=== PATIENT | male | born 1940 | race Caucasian/White ===

== ENCOUNTER 2016-06-08 11:25 | Emergency (ER) | payer OTHER ==
--- NOTE | 2016-06-08 12:27 | EDPHY ---
H & P Time Seen by Provider: 06/08/16 12:24 HPI/ROS: HPI: 76-year-old male presents to emergency department with chief concern fever and cough. Symptoms onset suddenly yesterday. Reports dry cough with temp 103 this morning associated with lightheadedness. Denies myalgias, rhinorrhea, sore throat, ear pain, shortness of breath, chest pain, abdominal pain, nausea, vomiting, diarrhea, rash. No recent travel. No flu shot this year. Up-to-date with Pneumovax. Daily medication includes aspirin and preservation. Past medical history includes colectomy, hernia, orthopedic surgeries. Primary care providers Dr. Abrams. ROS:10 point review of systems is negative other than as stated in HPI Social History: Smoking Status: Never smoked Physical Exam: Vital signs reviewed by me General: Awake, alert, calm, cooperative. No acute distress. Head: Normalocephalic. Atraumatic. EENT: PERRLA. EOMI. No pallor or injection. Anicteric. No nystagmus. No injection. TMs intact bilaterally with normal landmarks. No rhinnorhea, nasal passages clear. Oropharynx without redness, exudates, or lesions. Tonsils 2+ bilaterally, no exudates. Neck: Supple, nontender. No lymphadenopathy. Full range of motion. No meningismus. Respiratory: Breathing unlabored. Diminished bilateral lower lobe without rales or rhonchi. CV: Chest nontender, atraumatic. Heart rate regular. No murmur, distal pulses 2+ bilaterally. Brisk cap refill all extremities. GI: Abdomen soft, nontender. Bowel sounds normoactive and positive x4 quadrants. : No CVA or flank tenderness. Neuro: Alert. Oriented x 3. Speech clear. Nonfocal cranial nerves throughout. Sensation intact all extremities. Skin: Skin warm, dry, intact. No rashes, abrasions, or lacerations. Skin turgor normal. Extremities: Full range of motion in all 4 extremities. Strength 5+ all extremities. Constitutional: Initial Vital Signs Temperature (C) 37.2 C 06/08/16 11:27 Heart Rate 91 06/08/16 11:27 Respiratory Rate 18 06/08/16 11:27 Blood Pressure 107/68 06/08/16 11:27 O2 Sat (%) 91 L 06/08/16 11:27 O2 Delivery Mode Room Air Allergies/Adverse Reactions: No Known Allergies Allergy (Unverified 06/08/16 11:31) Home Medications: Medication Instructions Recorded Aspirin 06/08/16 Preservision Areds 2 Softgel 06/08/16 Medical Decision Making - Diagnostics Imaging: PA and Lateral Chest Indication: Cough. Fever. Comparison: Two-view chest dated January 03, 2015 Findings: No airspace consolidation, edema or effusion. The lungs are hypoventilated with subpleural reticular abnormality in the lower lung zones. Heart size normal. Mild degenerative disk disease present throughout the mid thoracic spine. Suture anchors and screws overlie bilateral shoulders. Impression: 1. No pneumonia. 2. Query underlying interstitial lung disease. Dictated By: Bret Woods MD ED Course/Re-evaluation: Nontoxic 76-year-old male presents to emergency department with fever and cough. Symptoms onset suddenly yesterday. Did not receive a flu shot this year. He has no nausea or vomiting. He is tolerating p.o.. Flu swab is negative. In the setting of this patient having no myalgias, we will not treat him with Tamiflu. X-ray negative for evidence of pneumonia. Suspect other viral upper respiratory infection and will have him follow up with primary care for recheck by tomorrow without fail. Patient and his comfortable with this plan verbalize understanding of follow-up plan. Vitals are stable upon discharge. Differential Diagnosis: Differential diagnosis includes but is not limited to influenza, pneumonia, other viral URI - Data Points Laboratory Results: 06/08/16 12:31 Influenza Typ A,B (DFA) NEGATIVE FOR FLU (NEGATIVE) Departure - Departure Disposition: Home, Routine, Self-Care Clinical Impression: Viral upper respiratory infection Condition: Good Instructions: Upper Respiratory Infection (ED) Additional Instructions: Plan: Follow up with primary care by tomorrow for recheck without fail--When you call to schedule appointment, please let the office know you are an "ER follow up" appointment" For worsening symptoms including shortness of breath or chest pain return promptly to emergency department for recheck Referrals: Manpreet Abrams MD [Primary Care Provider] - As per Instructions
[2016-06-08 13:16] VITALS: BP 128/78; PULSE 70; RESP 14; TEMP 98.1; O2SAT 92
== END 2016-06-08 13:15 | disposition home or self-care (01) ==
DX: J06.9 Acute upper respiratory infection, unspecified (principal); Z79.82 Long term (current) use of aspirin

== ENCOUNTER 2017-10-17 09:07 | Inpatient (IN) | payer OTHER ==
--- NOTE | 2017-10-17 09:29 | CPEKG ---
Heart Rate: 66 RR Interval: 909 P-R Interval: 236 QRSD Interval: 86 QT Interval: 424 QTC Interval: 445 P [place]: 24 QRS [place]: -15 T Wave [place]: 8 EKG Severity - ABNORMAL ECG - EKG Impression: SINUS RHYTHM EKG Impression: FIRST DEGREE AV BLOCK EKG Impression: BORDERLINE LEFT AXIS DEVIATION Electronically Signed By: Mary Roldan 17-Oct-2017 14:49:11
--- NOTE | 2017-10-17 09:30 | EDPHY ---
H & P Stated Complaint: c/o L lower arm numbness/pain during night - Personal History Current Tetanus Diphtheria and Acellular Pertussis (TDAP): Yes - Medical/Surgical History Hx Asthma: No Hx Chronic Respiratory Disease: No Hx Diabetes: No Hx Cardiac Disease: Yes Hx Renal Disease: No Hx Cirrhosis: No Hx Alcoholism: No Hx HIV/AIDS: No Hx Splenectomy or Spleen Trauma: No Other PMH: afib. 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 This started at 3:00 a.m. Today. He is unsure whether the pain will come upper whether he had to go to the bathroom and noticed the discomfort. He then noticed paresthesias. This has now resolved. He notes similar symptoms when he was swimming 4 days ago. Pain resolved 10 min after he stops swimming. At the time I interview and examine him he is asymptomatic. He denies: Chest pain, dyspnea, back pain, arm pain. He does state that he has had difficulty appreciating as brisk pulses usual for the past few days and feels that the hand is slightly colder. PRIMARY CARE PROVIDER: REVIEW OF SYSTEMS: A ten point review of systems was performed and is negative with the exception of the items mentioned in the HPI PAST MEDICAL & SURGICAL HISTORY: A brief run of atrial fibrillation several years ago he is undergoing medical procedure however no history of atrial fibrillation or coagulopathic disorder since SOCIAL HISTORY:Nonsmoker. No drug use. 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 Appears to be in no acute distress. Smiling, making jokes, interactive appears well. 2) HEAD: Normocephalic, atraumatic 3) HEENT: Pupils equal, round, reactive to light bilaterally. Sclera anicteric. Nasopharynx, oropharynx, clear, no lesions. 4) NECK: Full range of motion, no meningeal signs. 5) LUNGS: Clear auscultation bilaterally, no wheezes, no rhonchi, no retractions. 6) HEART: Regular rate and rhythm, no murmur, no heave, no gallop. 7) ABDOMEN: No guarding, no rebound, no focal tenderness, negative McBurney's, negative Perales's, negative Rovsing's, negative peritoneal sign, 8) MUSCULOSKELETAL: Left upper extremity: Left hand is slightly cooler than the right. Capillary refill is slightly delayed versus the right. He has no tenderness to palpation of the upper extremity. He has soft compartments. Faint Dopplerable pulses only. 9) BACK: No CVA tenderness, no midline vertebral tenderness, no fluctuance, no step-off, no obvious trauma, no visual or palpable abnormality. 10) SKIN: No rash, no petechiae. 11) Psychiatric: Patient is oriented X 3, there is no agitation. DIFFERENTIAL DIAGNOSIS: In no particular order, including but not limited to arterial occlusion, venous occlusion, myocardial ischemia, pulmonary embolus, chest wall pain, pleural inflammation and pulmonary infectious causes. (Meme Paredes) Constitutional: Initial Vital Signs Temperature (C) 36.4 C 10/17/17 09:08 Heart Rate 70 10/17/17 09:08 Respiratory Rate 16 10/17/17 09:08 Blood Pressure 165/92 H 10/17/17 09:08 O2 Sat (%) 97 10/17/17 09:08 O2 Delivery Mode Room Air Allergies/Adverse Reactions: No Known Allergies Allergy (Verified 10/17/17 09:07) Home Medications: Medication Instructions Recorded Aspirin 06/08/16 Preservision Areds 2 Softgel 06/08/16 Medical Decision Making - Diagnostics EKG Interpretation: EKG interpreted by me reveals first-degree AV block, rate 66, borderline left axis deviation, no ST or T segment changes. Interpretation: Abnormal EKG (Mary Roldan) Imaging Results: Imaging Impressions Chest X-Ray 10/17/17 09:42 Impression: No evidence of vein thrombosis in the left arm. Results called and discussed with Meme GIBSON on 10/17/2017 at 10:23. Extremity Venous Study 10/17/17 09:43 Impression: No evidence of vein thrombosis in the left arm. Results called and discussed with Meme GIBSON on 10/17/2017 at 10:23. Upper Extremity CT 10/17/17 09:48 Impression: 1. Obstruction of the distal left brachial artery presumably related to thrombus with diminished blood flow to the left forearm. 2. See above report for additional findings. Results called and discussed with Meme GIBSON on 10/17/2017 at 12:05. ED Course/Re-evaluation: 9:45 a.m.: Discussed case with secondary supervising physician Dr. Mary Roldan in the ER. Will obtain diagnostic studies including CT angiography of the upper extremity. 10:30 a.m.: Ultrasound left upper extremity negative. Awaiting results of CT angiography. Troponin is negative. I think that cardiac etiology is less than likely in this patient given his current presenting signs and symptoms. I have expressed the patient my concern over possible arterial occlusive pathology. 11:58 p.m.: Consultation with staff radiologist regarding the patient's imaging results positive for a brachial artery occlusion. 12:01 p.m.: Consultation who will evaluate patient in the ER, recommend initiating heparin therapy 1218 pm: Dr Lowry in ER to see patient Dr. Lowry will take the patient to the operating room. (Meme Paredes) 10:15 a.m.-this patient was seen and examined by me. Left upper extremity normal inspection, finger tips are slightly cooler than the right finger tips, no palpable radial pulse. Concern for arterial compromise, CTA of the left upper extremity pending. CC time 15 minutes. (Mary Roldan) - Data Points Laboratory Results: Laboratory Results 10/17/17 09:50 10/17/17 09:50 10/17/17 10/17/17 10/17/17 10:15 10:12 09:50 WBC RBC Hgb POC Hgb 14.3 gm/dL gm/dL (13.7-17.5) Hct POC Hct 42 % % (40-51) MCV MCH MCHC RDW Plt Count MPV Neut % (Auto) Lymph % (Auto) [place] % (Auto) Eos % (Auto) Baso % (Auto) Nucleat RBC Rel Count Absolute Neuts (auto) Absolute Lymphs (auto) Absolute Monos (auto) Absolute Eos (auto) Absolute Basos (auto) Absolute Nucleated RBC Immature Gran % Immature Gran # PT INR APTT POC Sodium 141 mEq/L mEq/L (135-145) Sodium 138 mEq/L mEq/L (135-145) POC Potassium 4.2 mEq/L mEq/L (3.3-5.0) Potassium 4.6 mEq/L mEq/L (3.3-5.0) POC Chloride 104 mEq/L mEq/L (97-110) Chloride 106 mEq/L mEq/L (97-110) Carbon Dioxide 24 mEq/l mEq/l (22-31) Anion Gap 8 mEq/L mEq/L (8-16) POC BUN 22 mg/dL mg/dL (7-23) BUN 23 mg/dL mg/dL (7-23) Creatinine 1.0 mg/dL mg/dL (0.7-1.3) POC Creatinine 1.1 mg/dL mg/dL (0.7-1.3) Estimated GFR > 60 Glucose 119 mg/dL H mg/dL (70-100) POC Glucose 125 mg/dL H mg/dL (70-100) Calcium 9.4 mg/dL mg/dL (8.5-10.4) POC Troponin I 0.01 ng/mL ng/mL (0.00-0.08) 10/17/17 10/17/17 09:50 09:50 WBC 8.54 10^3/uL 10^3/uL (3.80-9.50) RBC 4.42 10^6/uL 10^6/uL (4.40-6.38) Hgb 14.0 g/dL g/dL (13.7-17.5) POC Hgb Hct 41.1 % % (40.0-51.0) POC Hct MCV 93.0 fL fL (81.5-99.8) MCH 31.7 pg pg (27.9-34.1) MCHC 34.1 g/dL g/dL (32.4-36.7) RDW 12.8 % % (11.5-15.2) Plt Count 211 10^3/uL 10^3/uL (150-400) MPV 9.6 fL fL (8.7-11.7) Neut % (Auto) 72.8 % % (39.3-74.2) Lymph % (Auto) 14.9 % L % (15.0-45.0) [place] % (Auto) 9.3 % % (4.5-13.0) Eos % (Auto) 2.1 % % (0.6-7.6) Baso % (Auto) 0.5 % % (0.3-1.7) Nucleat RBC Rel Count 0.0 % % (0.0-0.2) Absolute Neuts (auto) 6.23 10^3/uL 10^3/uL (1.70-6.50) Absolute Lymphs (auto) 1.27 10^3/uL 10^3/uL (1.00-3.00) Absolute Monos (auto) 0.79 10^3/uL 10^3/uL (0.30-0.80) Absolute Eos (auto) 0.18 10^3/uL 10^3/uL (0.03-0.40) Absolute Basos (auto) 0.04 10^3/uL 10^3/uL (0.02-0.10) Absolute Nucleated RBC 0.00 10^3/uL 10^3/uL (0-0.01) Immature Gran % 0.4 % % (0.0-1.1) Immature Gran # 0.03 10^3/uL 10^3/uL (0.00-0.10) PT 13.9 SEC SEC (12.0-15.0) INR 1.05 (0.83-1.16) APTT 27.5 SEC SEC (23.0-38.0) POC Sodium Sodium POC Potassium Potassium POC Chloride Chloride Carbon Dioxide Anion Gap POC BUN BUN Creatinine POC Creatinine Estimated GFR Glucose POC Glucose Calcium POC Troponin I Medications Given: Discontinued Medications Bacitracin (Bacitracin Syringe) Confirm Administered Dose 50,000 units IRR .STK- MED ONE Stop: 10/17/17 12:55 Last Admin: 10/17/17 14:31 Dose: 50,000 units Cefazolin Sodium (Ancef) Confirm Administered Dose 1 gm .ROUTE .STK-MED ONE Stop: 10/17/17 13:40 Last Admin: 10/17/17 13:34 Dose: 1 gm Cefazolin Sodium (Ancef) Confirm Administered Dose 1 gm .ROUTE .STK-MED ONE Stop: 10/17/17 13:40 Last Admin: 10/17/17 13:34 Dose: 1 gm Heparin Sodium (Porcine) (Heparin Injection) 0 unit IVP EDNOW ONE Stop: 10/17/17 12:04 Last Admin: 10/17/17 12:18 Dose: 7,200 units Heparin Sodium (Porcine) (Heparin Flush 2,000 Unit/Ns 1,000 Ml) Confirm Administered Dose 2,000 unit .ROUTE .STK-MED ONE Stop: 10/17/17 12:54 Last Admin: 10/17/17 14:31 Dose: 2,000 unit Heparin Sodium (Porcine) (Heparin 50 Units/Ml (Premix)) 500 mls @ 0 mls/hr IV EDNOW ONE; Per Protocol PRN Reason: Protocol Stop: 10/17/17 12:04 Last Admin: 10/17/17 12:18 Dose: 500 mls Cefazolin Sodium/Dextrose (Ancef 2 Gm) 100 mls @ 200 mls/hr IV ONCALL ONE PRN Reason: Protocol Stop: 10/17/17 13:32 Last Admin: 10/17/17 14:34 Dose: Not Given Iothalamate Meglumine (Conray) Confirm Administered Dose 50 ml IV .STK-MED ONE Stop: 10/17/17 12:54 Last Admin: 10/17/17 14:29 Dose: 50 ml Polymyxin B Sulfate (Polymyxin B Syringe) Confirm Administered Dose 500,000 unit IRR .STK-MED ONE Stop: 10/17/17 12:54 Last Admin: 10/17/17 14:31 Dose: 500,000 unit Point of Care Test Results: Chemistry 10/17/17 10/17/17 10:15 10:12 POC Sodium 141 mEq/L mEq/L (135-145) POC Potassium 4.2 mEq/L mEq/L (3.3-5.0) POC Chloride 104 mEq/L mEq/L (97-110) POC BUN 22 mg/dL mg/dL (7-23) POC Creatinine 1.1 mg/dL mg/dL (0.7-1.3) POC Glucose 125 mg/dL H mg/dL (70-100) POC Troponin I 0.01 ng/mL ng/mL (0.00-0.08) ISTAT H&H 10/17/17 10:15 POC Hgb 14.3 gm/dL gm/dL (13.7-17.5) POC Hct 42 % % (40-51) Departure - Departure Disposition: [facility] Inpatient Acute 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
[2017-10-17 10:05] LABS: PLATELET COUNT 211 10^3/uL (150-400)
[2017-10-17 10:13] LABS: INR 1.05 (0.83-1.16); PROTIME(PATIENT) 13.9 SEC (12.0-15.0)
[2017-10-17] MEDS ORDERED: IOPAMIDOL (ISOVUE 370) 100 ML BTL IV ONE (10:22)
[2017-10-17] MEDS ORDERED: HEPARIN 10,000 UNIT/10 ML MDV (1,000 UNIT/ML) IVP ONE (12:03)
[2017-10-17] MEDS ORDERED: HEPARIN/DEXTROSE 500 ML IV ONE (12:03)
[2017-10-17] MEDS ORDERED: POLYMYXIN B SULFATE 500,000 UNIT/10 ML SYR IRR ONE (12:53)
[2017-10-17] MEDS ORDERED: PAPAVERINE HCL 60 MG/2 ML SDV ONE (12:53)
[2017-10-17] MEDS ORDERED: IOTHALAMATE MEG (CONRAY) 50 ML VIAL IV ONE ×2 (12:53→15:18)
[2017-10-17] MEDS ORDERED: BACITRACIN 50,000 UNITS/10 ML SYR IRR ONE (12:54)
--- NOTE | 2017-10-17 13:02 | PDGENHP ---
History and Physical - Chief Complaint L arm numbness - History of Present Illness 77yo otherwise helahty male presents with numbness and pain in the LUE. States that he initially noticed these symptoms about 3 days ago after swimming. The symptoms persisted and worsened today which prompted his presentation here. Describes a pins and needles feeling in his L hand, otherwise has full use of the extremity. Has remote hx of A-fib, notes no new trauma and otherwise feels well. 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, 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 Review of Systems Review of Systems: ROS: 10pt was reviewed & negative except for what was stated in HPI & below Physical Exam Physical Exam: Temp Pulse Resp BP Pulse Ox 36.4 C 61 18 133/82 H 96 10/17/17 09:08 10/17/17 10:36 10/17/17 10:36 10/17/17 10:36 10/17/17 10:36 Constitutional: no apparent distress, appears nourished, not in pain Eyes: PERRL, anicteric sclera, EOMI Ears, Nose, Mouth, Throat: moist mucous membranes, hearing normal, ears appear normal, no oral mucosal ulcers Cardiovascular: regular rate and rhythym, no murmur, rub, or gallop, No edema Peripheral Pulses: 2+: carotid (R), carotid (L), femoral (R), femoral (L), dorsalis-pedis (R), dorsalis-pedis (L) Respiratory: no respiratory distress, no rales or rhonchi, clear to auscultation Gastrointestinal: normoactive bowel sounds, soft, non-tender abdomen, no palpable masses Genitourinary: no bladder fullness, no bladder tenderness Skin: warm, normal color, no rashes or abrasions, no fluctuance, no induration, No mottled Musculoskeletal: full muscle strength, no muscle tenderness, normal joint ROM, no joint effusions, other (LUE: no radial or ulnar signal, hand is cool with delayed cap refill. Water-hammer pulse in L AC) Psychiatric: interacting appropriately, not anxious, not encephalopathic, thought process linear Lymph, Heme, Immunologic: no cervical LAD, no supraclavicular LAD Lab Data & Imaging Review 10/17/17 09:50 10/17/17 09:50 WBC 8.54 10^3/uL (3.80-9.50) 10/17/17 09:50 RBC 4.42 10^6/uL (4.40-6.38) 10/17/17 09:50 Hgb 14.0 g/dL (13.7-17.5) 10/17/17 09:50 POC Hgb 14.3 gm/dL (13.7-17.5) 10/17/17 10:15 Hct 41.1 % (40.0-51.0) 10/17/17 09:50 POC Hct 42 % (40-51) 10/17/17 10:15 MCV 93.0 fL (81.5-99.8) 10/17/17 09:50 MCH 31.7 pg (27.9-34.1) 10/17/17 09:50 MCHC 34.1 g/dL (32.4-36.7) 10/17/17 09:50 RDW 12.8 % (11.5-15.2) 10/17/17 09:50 Plt Count 211 10^3/uL (150-400) 10/17/17 09:50 MPV 9.6 fL (8.7-11.7) 10/17/17 09:50 Neut % (Auto) 72.8 % (39.3-74.2) 10/17/17 09:50 Lymph % (Auto) 14.9 % (15.0-45.0) L 10/17/17 09:50 [place] % (Auto) 9.3 % (4.5-13.0) 10/17/17 09:50 Eos % (Auto) 2.1 % (0.6-7.6) 10/17/17 09:50 Baso % (Auto) 0.5 % (0.3-1.7) 10/17/17 09:50 Nucleat RBC Rel Count 0.0 % (0.0-0.2) 10/17/17 09:50 Absolute Neuts (auto) 6.23 10^3/uL (1.70-6.50) 10/17/17 09:50 Absolute Lymphs (auto) 1.27 10^3/uL (1.00-3.00) 10/17/17 09:50 Absolute Monos (auto) 0.79 10^3/uL (0.30-0.80) 10/17/17 09:50 Absolute Eos (auto) 0.18 10^3/uL (0.03-0.40) 10/17/17 09:50 Absolute Basos (auto) 0.04 10^3/uL (0.02-0.10) 10/17/17 09:50 Absolute Nucleated RBC 0.00 10^3/uL (0-0.01) 10/17/17 09:50 Immature Gran % 0.4 % (0.0-1.1) 10/17/17 09:50 Immature Gran # 0.03 10^3/uL (0.00-0.10) 10/17/17 09:50 PT 13.9 SEC (12.0-15.0) 10/17/17 09:50 INR 1.05 (0.83-1.16) 10/17/17 09:50 APTT 27.5 SEC (23.0-38.0) 10/17/17 09:50 POC Sodium 141 mEq/L (135-145) 10/17/17 10:15 Sodium 138 mEq/L (135-145) 10/17/17 09:50 POC Potassium 4.2 mEq/L (3.3-5.0) 10/17/17 10:15 Potassium 4.6 mEq/L (3.3-5.0) 10/17/17 09:50 POC Chloride 104 mEq/L (97-110) 10/17/17 10:15 Chloride 106 mEq/L (97-110) 10/17/17 09:50 Carbon Dioxide 24 mEq/l (22-31) 10/17/17 09:50 Anion Gap 8 mEq/L (8-16) 10/17/17 09:50 POC BUN 22 mg/dL (7-23) 10/17/17 10:15 BUN 23 mg/dL (7-23) 10/17/17 09:50 Creatinine 1.0 mg/dL (0.7-1.3) 10/17/17 09:50 POC Creatinine 1.1 mg/dL (0.7-1.3) 10/17/17 10:15 Estimated GFR > 60 10/17/17 09:50 Glucose 119 mg/dL (70-100) H 10/17/17 09:50 POC Glucose 125 mg/dL (70-100) H 10/17/17 10:15 Calcium 9.4 mg/dL (8.5-10.4) 10/17/17 09:50 POC Troponin I 0.01 ng/mL (0.00-0.08) 10/17/17 10:12 Visualized and Interpreted imaging results: Yes Interpretation: CTA: acute occlusion of L brachial at AC. Minimal distal flow to extremity Assessment & Plan Assessment: Acute thrombus of LUE with threatened limb Plan: Hep gtt has started in ED - to OR for brachial artery exploration, thrombectomy. Discussed the risks, benefits and alternatives. He wishes to proceed.
[2017-10-17] MEDS ORDERED: ceFAZolin 2 GM/DEXTROSE 100 ML IV ONE (13:03)
[2017-10-17] MEDS ORDERED: fentaNYL 100 MCG/2 ML INJ ONE ×2 (13:32→15:07)
[2017-10-17] MEDS ORDERED: PROPOFOL 200 MG/20 ML VIAL ONE (13:32)
[2017-10-17] MEDS ORDERED: LIDOCAINE 2% JELLY 5 ML TUBE ONE ×2 (13:32)
[2017-10-17] MEDS ORDERED: LIDOCAINE 2% 5 ML SDV ONE (13:32)
[2017-10-17] MEDS ORDERED: ONDANSETRON 4 MG/2 ML VIAL ONE (13:33)
[2017-10-17] MEDS ORDERED: DEXAMETHASONE 4 MG/ML VIAL ONE ×2 (13:33)
[2017-10-17] MEDS ORDERED: ceFAZolin 1 GM VIAL ONE ×2 (13:39)
--- NOTE | 2017-10-17 13:55 | PDANEPAE ---
ANE Past Medical History - Cardiovascular History Hx Hypertension: No Hx Arrhythmias: Yes Hx Chest Pain: No Hx Coronary Artery / Peripheral Vascular Disease: No Hx CHF / Valvular Disease: No - Pulmonary History Hx COPD: No Hx Asthma/Reactive Airway Disease: No Hx Recent Upper Respiratory Infection: No Hx Oxygen in Use at Home: No Hx Sleep Apnea: No - Endocrine History Hx Diabetes: No Hyperthyroid: No Obesity: no ANE Review of Systems Review of Systems: ANE Patient History - Allergies Allergies/Adverse Reactions: No Known Allergies Allergy (Verified 10/17/17 09:07) - Home Medications Home medications: home medication list seen and reviewed Home Medications: Aspirin 06/08/16 [Last Taken Unknown] Preservision Areds 2 Softgel 06/08/16 [Last Taken Unknown] - NPO status NPO Since - Liquids (Date): 10/17/17 NPO Since - Liquids (Time): 08:00 NPO Since - Solids (Date): 10/17/17 NPO Since - Solids (Time): 08:00 - Anes Hx Anes Hx: no prior problems - Smoking Hx Smoking Status: Never smoked ANE Labs/Vital Signs - Labs Result Diagrams: 10/17/17 09:50 10/17/17 09:50 - Vital Signs Blood Pressure: 173/98 Heart Rate: 70 Respiratory Rate: 18 O2 Sat (%): 95 Height: 182.88 cm Weight: 89.811 kg ANE Physical Exam - Airway Neck exam: FROM Mallampati Score: Class 2 Mouth exam: normal dental/mouth exam - Pulmonary Pulmonary: no respiratory distress, no rales or rhonchi, clear to auscultation - Cardiovascular Cardiovascular: regular rate and rhythym, no murmur, rub, or gallop - ASA Status ASA Status: II ANE Anesthesia Plan Anesthesia Plan: GA w LMA
[2017-10-17] MEDS ORDERED: HEPARIN 10,000 UNIT/10 ML MDV (1,000 UNIT/ML) ONE (14:33)
[2017-10-17] MEDS ORDERED: fentaNYL 100 MCG/2 ML INJ IVP PRN (15:11)
[2017-10-17] MEDS ORDERED: oxyCODONE IR 5 MG TAB PO PRN (15:11)
[2017-10-17] MEDS ORDERED: ENALAPRILAT DIHYDRATE 1.25 MG/ML VIAL IVP PRN (15:11)
[2017-10-17] MEDS ORDERED: ACETAMINOPHEN 500 MG TAB PO PRN (15:11)
[2017-10-17] MEDS ORDERED: NALOXONE HCL 0.4 MG/ML INJ IVP PRN (15:11)
[2017-10-17] MEDS ORDERED: HYDROCODONE/APAP 5/325 TAB PO PRN (15:11)
[2017-10-17] MEDS ORDERED: PROMETHAZINE HCL 25 MG/ML INJ IVP PRN (15:11)
[2017-10-17] MEDS ORDERED: ONDANSETRON 4 MG/2 ML VIAL IVP PRN ×2 (15:11→16:42)
[2017-10-17] MEDS ORDERED: MEPERIDINE 25 MG/0.5 ML AMP IVP PRN (15:11)
[2017-10-17] MEDS ORDERED: LR 500 ML IV PRN (15:11)
--- NOTE | 2017-10-17 16:21 | POSTANESTH ---
Post Anesthetic Evaluation Cardiovascular Status: Similar to Pre-Op Cond Respiratory Status: Normal, Stable, Similar to Pre-op Cond. Level of Consciousness/Mental Status: Can Participate in Eval, Mildly Sleepy, Arousable Pain Control: Adequate, Prn Tx Ordered Nausea/Vomiting Control: Adequate, Prn Tx Ordered Complications Possibly Related to Anesthesia: None Noted
--- NOTE | 2017-10-17 16:49 | POSTOPPROG ---
Post Op Note Date of Operation: 10/17/17 Surgeon: Lyle Lowry Team Lead: Kirit Laurent MD Anesthesiologist: Afshan Anesthesia: GET(General Endotracheal) Pre-op Diagnosis: occluded left brachial artery Post-op Diagnosis: same Procedure: brachial artery exploration, thrombectomy with completion angio Findings: clot in distal brachial at bifurc, completion angio: good flow in radial/ul Inf/Abcess present in the surg proc area at time of surgery?: No EBL: 50-100 Specimen(s): clot
[2017-10-17] MEDS ORDERED: HEPARIN 10,000 UNIT/10 ML MDV (1,000 UNIT/ML) IVP PRN (17:01)
[2017-10-17] MEDS: D5W 1/2 NS W/ 20 KCl/L 1,000 ML IV SCH (17:41)
[2017-10-17] MEDS ORDERED: HEPARIN/DEXTROSE 500 ML IV SCH (18:00)
--- NOTE | 2017-10-17 18:05 | PDMN ---
Medical Necessity Medical necessity: Pt meets INPT criteria per MD as of 10/17/17 and MCG Cardiovascular Surgery or Procedure GRG (est. LOS >2 MN for acute occlusion of L brachial artery, s/p brachial artery exploration, thrombectomy).
[2017-10-17] MEDS: HEPARIN/DEXTROSE 500 ML IV SCH (18:32)
[2017-10-17 18:38] LABS: PLATELET COUNT 208 10^3/uL (150-400)
[2017-10-17 18:46] LABS: INR 1.16 (0.83-1.16)
[2017-10-17] MEDS: ACETAMINOPHEN 325 MG TAB PO PRN (19:45)
[2017-10-17] MEDS ORDERED: IBUPROFEN 600 MG TAB PO SCH (22:00)
--- NOTE | 2017-10-17 22:44 | GOP ---
[f rep st] OPERATIVE REPORT DATE OF OPERATION: 10/17/2017 SURGEON: Lyle Lowry MD APARTMENT HOUSE MANAGER: Jackson Laurent MD. ANESTHESIA: General endotracheal. ANESTHESIOLOGIST: Dr. Stephan Cavanaugh. PREOPERATIVE DIAGNOSIS: Threatened left upper extremity secondary to occluded left brachial artery. POSTOPERATIVE DIAGNOSIS: Threatened left upper extremity secondary to occluded left brachial artery. PROCEDURE PERFORMED: Brachial artery exploration with thrombectomy and completion angiography. FINDINGS: The patient had significant clots at the bifurcation creating what appeared to be a saddle embolus with a bifurcation of the distal brachial into the radial and ulnar requiring 2 separate thr ombectomies. Completion angiography showed brisk flow through both the radial and the ulnar branches as well as a 2+ palpable radial pulse. SPECIMENS: Clot within the artery. ESTIMATED BLOOD LOSS: 50 mL. DESCRIPTION OF PROCEDURE: The patient was greeted in the preoperative suite. Once again, risks, tabatha efits, and alternatives were discussed. Consent was signed. He was then brought back to the operati ve suite, placed on the OR table in supine position. After all anesthesia machines including SCDs we re on and functioning, World Health Organization time-out was performed. After successful induction of general anesthesia, the patient's left upper extremity to the shoulder was prepped and draped in t ypical sterile fashion. I also prepped doubt his left lower extremity in case a vein harvest was req uired. I commenced the procedure using ultrasound. Identified the brachial artery and traced its co urse over the patient's arm. I then made a lazy-S incision from the antecubital fossa all the way do wn into the forearm and carried this down to the subcutaneous tissue with electrocautery. The remain radames of the dissection was done sharply. I successfully isolated the brachial artery both proximally and distally, distally all the way down to the bifurcation into the radial and ulnar branches. It wa s encircled with vessel loops. The patient was then successfully heparinized. I first turned my att ention toward the ulnar branch which was deep. I made a transverse arteriotomy at the level of the t hrombus, the majority of which was removed at this time. I then passed a #3 Erica catheter both pr oximally and distally into the ulnar artery and had both brisk inflow and backbleeding. Completion a ngiography showed brisk flow through the ulnar branch into the palmar arch. I did not have great opa cification of the radial artery. I then did more dissection and found what appeared to be an aberran t branch of the radial artery. I dissected this out, found thrombus at this. I then performed anoth er transverse arteriotomy at this site. Again, at the level of the clot. Removed the majority of th e clot burden here. I did pass #2 and #3 Erica catheters both proximally and distally at this site and had both good inflow and back bleeding at the site. Both arteriotomies were closed interrupted with 6-0 Prolene sutures. A completion angiography was then performed proximally which showed good o pacification of both the radial and ulnar branches with a palpable radial pulse in the patient's dist al wrist. The wound was then irrigated. Hemostasis was noted to be excellent. It was closed in lay ers, first a 2-0 Vicryl to close the subcutaneous tissue, 3-0 Vicryl superficially, and the skin was then closed with nicholas. Sterile dressing was placed. At the end of the procedure, the patient's h and was warm. He had good capillary refill and a prominent 2+ radial pulse on the left side. Steril e dressings were placed. He was then extubated in the operative suite and taken to PACU in satisfact ory condition. DRAINS: None. COUNTS: All counts were reported as correct x2. /[id number]/MODL
[2017-10-18] MEDS: ACETAMINOPHEN/CODEINE 300/30MG TAB PO PRN ×3 (00:09→22:03)
[2017-10-18] MEDS: D5W 1/2 NS W/ 20 KCl/L 1,000 ML IV SCH ×2 (04:38→23:31)
[2017-10-18] MEDS: ACETAMINOPHEN 325 MG TAB PO PRN (06:23)
[2017-10-18] MEDS: HYDROmorphONE/DILAUDID 1 MG/ML INJ IVP PRN ×5 (09:22→23:27)
[2017-10-18 10:43] LABS: INR 1.2 (0.83-1.16); PROTIME(PATIENT) 15.4 SEC (12.0-15.0)
--- NOTE | 2017-10-18 11:19 | ASMTCASEMG ---
Living Arrangements What is your living Answers: With Partner arrangement? Who do you live with? Type Of Residence What kind of residence do Answers: House you live in? Discharge Plan Comments Coordination Status Comments Notes: Pt is a 77 y/o man admitted for left arm pain/numbess. Pt had surgery w/ Dr. Lowry on 10/17/17 for a clot within the artery. Pt will most likely d/c independent once medically stable. No therapies ordered at this time. CM available for changes. Plan: Independent Date Signed: 10/18/2017 11:19 AM Electronically Signed By:NELSY Mondragon
[2017-10-18] MEDS: HEPARIN/DEXTROSE 500 ML IV SCH (11:48)
--- NOTE | 2017-10-18 13:12 | GCON ---
[f rep st] CONSULTATION CARDIOLOGY CONSULTATION. DATE OF CONSULTATION: 10/18/2017 REFERRING PHYSICIAN: Lyle Lowry MD REASON FOR CONSULTATION: 1. History of paroxysmal atrial fibrillation. 2. Current admission for left upper extremity arterial thrombosis. HISTORY: The patient is a 77-year-old male with a history of paroxysmal atrial fibrillation. He was admitted to the hospital yesterday with left upper extremity pain and numbness. CT angiography demonstrated a thrombotic, near- total occlusion of the brachial artery at the level of the antecubital fossa. The patient was taken for surgical embolectomy. He is currently on intravenous heparin. He has a history of atrial fibrillation, which first presented in approximately 1999. He had intermittent episodes. However, between 2009 and 2013, he was followed by my partner, Dr. Malvin Sidhu. At that time, he appeared to be in persistent atrial fibrillation. A 24-hour Holter from December 2013 demonstrated atrial fibrillation with adequate rate control. The only other ECG in his electronic chart is from December of 2014 and also demonstrates atrial fibrillation. The patient never had an ablation procedure, cardioversion , or treatment with antiarrhythmic therapy. He was on Eliquis in the past, but opted to defer it in favor of aspirin. Interestingly, on admission yesterday, his ECG demonstrated normal sinus rhythm. PAST MEDICAL HISTORY: In addition to his atrial fibrillation, he has a history of colon cancer, pityriasis rubra pilaris, and macular degeneration. PAST SURGICAL HISTORY: Includes bicipital tendon repair, cataract surgery, partial colectomy, hernia repair, tonsillectomy, and bilateral rotator cuff repairs. FAMILY HISTORY: Noncontributory. MEDICATIONS: His only home medications are low-dose aspirin and PreserVision vitamin supplements. 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 He is . He does not smoke or consume significant amounts of alcohol. He is an avid mountaineer. REVIEW OF SYSTEMS: Apart from the arm pain that prompted this hospital encounter, a 10-point review was negative. PHYSICAL EXAMINATION: VITAL SIGNS: Heart rate in the 60s, blood pressure 125/ 73, O2 saturation 96% on room air. GENERAL: Well-developed, well-nourished male, in no acute distress. He is alert and oriented x3. HEAD AND NECK: No scleral icterus. Mucous membranes moist. Carotid pulses 2+, without bruits. CHEST: Lung cardenas clear to auscultation. CARDIAC: Normal rate and regular rhythm with normla S1 and S2. No murmurs or gallops. ABDOMEN: Soft, nontender , nondistended, with normal bowel sounds. EXTREMITIES: 2+ pulses, with no peripheral edema. LABORATORY STUDIES: CBC demonstrates a white blood cell count of 16.4. Hemoglobin and hematocrit are 12.4 and 36.3. Platelet count 206,000. Sodium 141, potassium 4.2, BUN and creatinine 23 and 1.0. His troponin was 0.01. ECG: Demonstrates normal sinus rhythm with first-degree AV block. No ischemic changes. IMPRESSION: This is a 77-year-old male with a history of atrial fibrillation. Interestingly, it appeared to be persistent as recently as December of 2014. However, he was in sinus rhythm at the time of his presentation for this hospital encounter. He was previously on systemic anticoagulation, but opted to discontinue it prior to 2013. He does not think that he has had any significant issues with atrial fibrillation for the past few years. He had significant cardiovascular training as part of his career as a division sales manager and is familiar with the concepts relating to atrial fibrillation and feels that he can easily and accurately assess his heart rhythm. He has no history of hypertension, hyperlipidemia, or documented atherosclerotic disease. He presented with a left upper extremity arterial thrombosis. I suppose it is possible that he has been having occult episodes of atrial fibrillation and could have had a cardioembolic event. However, the upper extremity would be an atypical site for a cardioembolic event. Additionally, it appeared that he had a large thrombus burden at the time of his thrombectomy. While this could potentially argue against atrial fibrillation with subsequent cardioembolism, I suppose it is possible that he had a smaller embolus typical for a-fib that lodged in the brachial artery with propagation of additional thrombus locally. He has not had any history of other thrombotic episodes. RECOMMENDATIONS: An echocardiogram will be requested. He is currently on intravenous heparin. He should be transitioned to a systemic anticoagulant once it is felt to be safe to do so from a postoperative standpoint. The patient would prefer anticoagulation to take the form of Eliquis as opposed to warfarin. I will contact the office staff at [facility] so that they can arrange for the patient to have an outpatient 30-day event monitor and a followup appointment with Dr. Malvin Sidhu. Would consider a hypercoaguable evaluation. /[id number]/MODL MTDD
--- NOTE | 2017-10-18 14:22 | ECHO ---
[email or web address] [address] [address] Main: [phone] Fax: Transthoracic Echocardiogram Name: JOCELYN LEI MR#: [id number] Study Date: 10/18/2017 Study Time: 10:58 AM Date of : 1940 Age: 77 year(s) Height: 182.9 cm (72 in.) Weight: 89.81 kg (198 lb.) BSA: 2.12 m2 Gender: Male Examination: Echo Indication: Arterial embolism Image Quality: Contrast: Requested by: Song Sanchez BP: 107 mmHg/63 mmHg Heart Rate: Rhythm: Indication: Arterial embolism Procedure Staff Rigger Helper: Mayela Washington [facility] [place] Reading Physician: Albert Sidhu MD Requesting Provider: Conclusions: Normal size left ventricle. No LV hypertrophy. Normal global systolic LV function. The ejection fraction is estimated to be 65-70 %. No regional wall motion abnormality. The mitral valve is normal in appearance and function. Mild mitral valve regurgitation is present. Minimal aortic cusp calcification is noted. Trivial aortic valve regurgitation. The tricuspid valve is normal in appearance and function. Trivial to mild tricuspid valve regurgitation. Mild pulmonic valve regurgitation is noted. Mildly dilated ascending aorta measuring 4.2 cm. No previous. Measurements: Chambers Valvular Assessment AV/MV Valvular Assessment TV/PV Normal Normal Normal Name Value Range Name Value Range Name Value Range Ao Sendy (MM): 3.6 cm (2.2 cm-3.7 AV Vmax: 1.14 m/s (1 m/s-1.7 TR Vmax: 2.69 mm/s ( - ) cm) m/s) TR PGmax: 29 mmHg ( - ) IVSd (2D): 0.8 cm (0.6 cm-1.1 AV maxP mmHg ( - ) syst. PAP: 34 mmHg ( - ) cm) AV meanP mmHg ( - ) LVDd (2D): 5.0 cm (4.2 cm-5.9 MV E Vmax: 0.72 m/s ( - ) cm) MV A Vmax: 0.31 m/s ( - ) LVDs (2D): 3.1 cm (2.1 cm-4 MV E/A: 2.32 ( - ) cm) LVPWd (2D): 1.0 cm (0.6 cm-1 cm) LVEF (MOD4): 73 % (>=55 %) Patient: JOCELYN LEI Study Date: 10/18/2017 Page 1 of 2 10:58 AM EF Range: 65-70 % Continued Measurements: Chambers Valvular Assessment AV/MV Valvular Assessment TV/PV Name Value Name Value Name Value LADs: 3.7 cm MV E/E' Septal: 12.90 CVP (est.): 5 mmHg LADs Lon.2 cm MV E/E' Lateral: 9.80 LA Area: 25.2 cm2 Additional Vessels Name Value Ao Ascendin.2 cm Findings: Left Ventricle: Normal size left ventricle. No LV hypertrophy. Normal global systolic LV function. The ejection fraction is estimated to be 65-70 %. No regional wall motion abnormality. Right Ventricle: Normal size right ventricle. Left Atrium: The left atrium is mildly dilated. Right Atrium: The right atrium is normal in size. Mitral Valve: The mitral valve is normal in appearance and function. Mild mitral valve regurgitation is present. Aortic Valve: The aortic valve is tri-leaflet. Minimal aortic cusp calcification is noted. Trivial aortic valve regurgitation. Tricuspid Valve: The tricuspid valve is normal in appearance and function. Trivial to mild tricuspid valve regurgitation. Pulmonic Valve: The pulmonic valve is normal in appearance and function. Mild pulmonic valve regurgitation is noted. Aorta: The aorta is normal. Mildly dilated ascending aorta measuring 4.2 cm. Pericardium: No pericardial effusion. (No Signature Object) Patient: JOCELYN LEI Study Date: 10/18/2017 Page 2 of 2 10:58 AM [id number]
--- NOTE | 2017-10-18 16:24 | SOAPPROG ---
[facility]ANNAH Progress Note Assessment/Plan: Assessment: 77yo M s/p LUE brachial artery thrombectomy - VSS, HDs - hep gtt, will transition to Eliquis tonight at 2100 - arm is swollen, distal sensation and motor is intact. Incision is c/d/i, has good 2+ radial pulse - watch for compartment syndrome, at this time things look ok, needs to keep the arm elevated. Plan: 10/18/17 16:23 Subjective: some LUE pain Objective: Vital Signs Temp Pulse Resp BP Pulse Ox 36.8 C 70 16 125/73 H 96 10/18/17 11:48 10/18/17 11:48 10/18/17 11:48 10/18/17 11:48 10/18/17 11:48 Laboratory Results 10/18/17 07:45 10/17/17 10/18/17 10/19/17 05:59 05:59 05:59 Intake Total 885 240 Output Total 1220 550 Balance -335 -310 PT 15.4 SEC (12.0-15.0) H 10/18/17 07:45 INR 1.20 (0.83-1.16) H 10/18/17 07:45 ICD10 Worksheet Patient Problems: Problems Problem Status Onset Occlusion of left brachial artery Acute
[2017-10-18] MEDS: APIXABAN 5 MG TAB PO SCH (21:00)
[2017-10-19] MEDS: ACETAMINOPHEN/CODEINE 300/30MG TAB PO PRN (02:12)
[2017-10-19] MEDS: HYDROmorphONE/DILAUDID 1 MG/ML INJ IVP PRN (05:01)
[2017-10-19] MEDS: APIXABAN 5 MG TAB PO SCH ×2 (09:35→20:02)
[2017-10-19] MEDS: ACETAMINOPHEN 325 MG TAB PO PRN ×2 (09:44→17:24)
--- NOTE | 2017-10-19 16:41 | PDCARPN ---
Cardiology Progress Note Assessment/Plan: Assessment: Plan: Subjective: No CV complaints. Left arm feeling better. Objective: Vital Signs (8 Hrs) Temp Pulse Resp BP Pulse Ox 10/19/17 15:49 36.5 C 91 14 126/77 H 96 10/19/17 11:53 36.7 C 86 14 127/72 H 96 Intake/Output (24 Hrs) 10/18/17 10/19/17 10/20/17 05:59 05:59 05:59 Intake Total 885 1340 Output Total 1220 2150 300 Balance -335 -810 -300 Intake: Oral (ml) 100 440 IV Intake (ml) 750 IV Infused (ml) 35 900 D5W 1/2 NS W/ 20 KCl/L 1, 600 000 ml @ 100 mls/hr IV CONT MOIRA Rx#:[id number] Heparin/Dextrose 500 ml @ 300 Per Protocol IV CONT MOIRA Rx#:[id number] Output: Urine (ml) 1200 2150 300 Toilet 250 Urinal 950 2150 300 Estimated Blood Loss (ml) 20 Emesis (ml) 0 Other: Weight 89.811 kg Number of Voids 1 Urinal 1 1 1 Result Diagrams: 10/19/17 05:17 10/17/17 09:50 - Physical Exam Constitutional: no apparent distress Eyes: anicteric sclera Ears, Nose, Mouth, Throat: moist mucous membranes Cardiovascular: regular rate and rhythm, no murmurs, no gallops Respiratory: clear to auscultate bilat Gastrointestinal: normoactive bowel sounds, no tenderness, no masses Skin: no edema Neurologic: AAOx3 Psychiatric: not anxious ICD10 Worksheet Patient Problems: Problems Problem Status Onset Occlusion of left brachial artery Acute
--- NOTE | 2017-10-19 17:53 | SOAPPROG ---
HANNAH Progress Note Assessment/Plan: Assessment: 77yo M s/p LUE brachial artery thrombectomy - VSS, HDs - Eliquis, tolerating well - LUE soft, distal radial pulse 2+ - ADAT - Ambulate - Home tomorrow, likely on Eliquis indefinitely. Plan: 10/18/17 16:23 10/19/17 17:52 Subjective: feels better, no penis blood Objective: Vital Signs Temp Pulse Resp BP Pulse Ox 36.5 C 91 14 126/77 H 96 10/19/17 15:49 10/19/17 15:49 10/19/17 15:49 10/19/17 15:49 10/19/17 15:49 Laboratory Results 10/19/17 05:17 10/18/17 10/19/17 10/20/17 05:59 05:59 05:59 Intake Total 885 1340 Output Total 1220 2150 300 Balance -335 -810 -300 PT 15.4 SEC (12.0-15.0) H 10/18/17 07:45 INR 1.20 (0.83-1.16) H 10/18/17 07:45 ICD10 Worksheet Patient Problems: Problems Problem Status Onset Occlusion of left brachial artery Acute
[2017-10-20] MEDS: ACETAMINOPHEN 325 MG TAB PO PRN (07:43)
[2017-10-20] MEDS: APIXABAN 5 MG TAB PO SCH (07:46)
[2017-10-20 07:54] VITALS: BP 125/92
--- NOTE | 2017-10-29 15:10 | GDS ---
[f rep st] DISCHARGE SUMMARY DISCHARGE DIAGNOSES: 1. Acute arterial thrombosis of the distal brachial, radial, ulnar branches of the left upper extrem ity. 2. Paroxysmal atrial fibrillation. HOSPITAL COURSE: The patient was seen in the emergency department on the , subsequently taken ur gently to the operating room where he underwent exposure of the distal brachial, as well as radial an d ulnar arteries where the acute arterial thrombus was removed. Completion angiography showed good f low through both the radial and the ulnar branches with a palpable radial pulse. Patient was subsequ ently taken back to the general medical floor where he was maintained on a heparin drip. He had cons ultation from Cardiology, whose recommendation was to restart Eliquis. It was unclear whether or not this was a spontaneous arterial thrombosis or whether it was secondary to an atrial fibrillation lui nt. At any rate, he maintained good perfusion throughout his left upper extremity. He was toleratin g regular diet, was subsequently discharged home in stable condition on the . DISCHARGE MEDICATIONS: Eliquis. He will take 10 mg twice a day for the remaining week, then back do wn to 5 mg twice a day indefinitely. He was also given oral narcotics for pain. DISPOSITION: Home. FOLLOWUP: He will follow up with me in 2 weeks for a general postop exam. He will also follow up wi th his media developer, Dr. Song Sanchez, in 2 weeks as well for a routine cardiology visit. /[id number]/MODL
== END 2017-10-20 11:33 | disposition home or self-care (01) | DRG 254 ==
LOC: OBSVTOIN 12:41 → F3E 16:56
PROVIDERS: ADMIT Surgery; ATTEND Surgery
PROC: B31J1ZZ Fluoroscopy of Left Upper Extremity Arteries using Low Osmolar Contrast (ICD-10-PCS; principal; 2017-10-17 13:15)
PROC: [UNRECOGNIZED PROCEDURE] (principal; 2017-10-17 13:15)
DX: I74.2 Embolism and thrombosis of arteries of the upper extremities (principal); I48.0 Paroxysmal atrial fibrillation; H35.30 Unspecified macular degeneration; Z85.038 Personal history of other malignant neoplasm of large intestine
CPT/HCPCS: 82435-PO; 82565-PO; 82947-PO; 84132-PO; 84295-PO; 84484-PO; 84520-PO; 85014-PO; 85520-90; 96365; 96366; C1757; J0690; J1100; J1170; J1644; J2405; J2440; J2704; J3010; Q9961; Q9967

== ENCOUNTER → 2017-11-23 | Outpatient (CLI) | payer OTHER | LOC: BHFA 14:00 | PROVIDERS: ATTEND Internal Medicine Cardiovascular Disease | DX: I48.91 Unspecified atrial fibrillation (principal); I70.208 Unspecified atherosclerosis of native arteries of extremities, other extremity; R00.0 Tachycardia, unspecified | CPT/HCPCS: 78452; 93017; A9500 ==

== ENCOUNTER 2017-12-02 07:32 | Observation (INO) | payer OTHER ==
[2017-12-02] MEDS ORDERED: ASPIRIN EC 325 MG TAB PO ONE ×2 (07:33→08:02)
[2017-12-02] MEDS ORDERED: FAMOTIDINE 20 MG TAB PO ONE (07:33)
[2017-12-02] MEDS ORDERED: diphenhydrAMINE 25 MG CAP PO ONE ×2 (07:33→08:02)
[2017-12-02] MEDS ORDERED: NS 1,000 ML IV ONE (07:33)
[2017-12-02] MEDS ORDERED: DIAZEPAM 5 MG TAB PO ONE (07:33)
[2017-12-02] MEDS ORDERED: FAMOTIDINE 20 MG TAB ONE (08:02)
[2017-12-02] MEDS ORDERED: DIAZEPAM 5 MG TAB ONE (08:03)
[2017-12-02 08:09] LABS: PLATELET COUNT 254 10^3/uL (150-400)
[2017-12-02 08:17] LABS: INR 1.4 (0.83-1.16); PROTIME(PATIENT) 17.3 SEC (12.0-15.0)
[2017-12-02] MEDS ORDERED: LIDOCAINE 1% 300 MG/30 ML SDV ONE (08:53)
[2017-12-02] MEDS ORDERED: fentaNYL 100 MCG/2 ML INJ ONE (08:53)
[2017-12-02] MEDS ORDERED: MIDAZOLAM 2 MG/2 ML VIAL ONE (08:53)
[2017-12-02] MEDS ORDERED: IOPAMIDOL (ISOVUE-370) 150 ML BTL IV ONE (08:54)
[2017-12-02] MEDS ORDERED: HEPARIN 10,000 UNIT/10 ML MDV (1,000 UNIT/ML) ONE (08:54)
[2017-12-02] MEDS ORDERED: VERAPAMIL 5 MG/2 ML VIAL ONE (08:54)
--- NOTE | 2017-12-02 09:40 | PDHPUP ---
History & Physical Update H&P update statement: This history and physical update is based on an assessment of the patient which was completed after admission or registration (within 24 hours), but prior to the surgery/procedure. H&P update: H&P reviewed & patient examined, no change in patient's condition since H&P completed
--- NOTE | 2017-12-02 09:40 | PDPROPOC ---
Sedation Plan of Care Sedation Plan of Care: vital signs stable, mental status noted, patient educated of risks, benefits, alternatives, patient can tolerate sedation ASA Classification: ASA 1 Planned drugs: fentanyl, midazolam Mallampati Score: Class 2 Mallampati Reference Image: Patient passed 3-3-2 rule?: Yes
[2017-12-02] MEDS ORDERED: ATROPINE SULFATE 1 MG/10 ML SYR IVP PRN (11:05)
[2017-12-02] MEDS ORDERED: ONDANSETRON 4 MG/2 ML VIAL IVP PRN ×2 (11:05→15:53)
[2017-12-02] MEDS ORDERED: NITROGLYCERIN 0.4 MG BTL SL PRN (11:05)
[2017-12-02] MEDS ORDERED: HYDROCODONE/APAP 5/325 TAB PO PRN (11:05)
--- NOTE | 2017-12-02 11:12 | PDDXCAT ---
Diagnostic Cath Note - . Date: 12/02/17 Hot Head Machine Operator: Daniel Indication: other (Nonsustained VT on outpatient monitoring and abnormal nuclear stress test.) - Procedure Access: right wrist Procedure: left heart catheterization, coronary angiography, left ventriculogram - Materials Left Heart Cath size: 5F Left Heart Cath materials: JL3.5, pigtail, other (Special) - Findings-Left Heart Catheterization LM: Normal. LAD: Mild irregularities up to 30%; first diagonal with focal 80-90% lesion mid- vessel. LCX: Mid-circumflex 100%; distal vessel filled by ixiqi-dt-lara collaterals. RCA: Diffuse mild to moderate irregularities up to 30-40%. EDP: 16 mmHg LVEF: 65% Wall motion: Normal. Estimated blood loss: <50ml Closure method: TR Band Assessment: 1) Normal LV systolic function. 2) Coronary artery disease as mentioned above. Plan: The chronic total the circumflex appears to be relatively short and should be approachable for PCI. The diagonal branch should be a relatively straightforward intervention. However, the patient has no cardiac symptoms. He underwent a stress test because our office was notified about an 8 beat run of wide complex tachycardia suggestive of a ventricular tachycardia seen on an [employer] 30 day monitor. Rather than proceed with an ad-hoc intervention today , I would like to present his case at our weekly conference to get additional input. I will see you in would also like to discuss the situation with him given that his arrhythmia would be a somewhat nonstandard indication for PCI. Patient Problems: Problems Problem Status Onset Occlusion of left brachial artery Acute
[2017-12-02] MEDS ORDERED: ACETAMINOPHEN 325 MG TAB PO PRN (15:53)
[2017-12-02] MEDS ORDERED: ONDANSETRON DISINTEGRATING 4 MG TAB PO PRN (15:53)
--- NOTE | 2017-12-02 16:03 | PDGENHP ---
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 Sanchez. He was getting ready to be discharged and was noted to have gross hematuria and discharge was held and Dr. Calderón requested admission. He has a hx of pAfib, is anticoagulated with Warfarin, and warfarin had been stopped since Wednesday. His INR today is noted to be 1.40. His Hgb was 14. He was given a full dose Aspirin as well as 5000 units of Heparin. He reports a prior hx of hematuria while heparinized. He denies any hx of prostate abnormalities and reports recent normal rectal exam within the past few weeks. He has also had a cystoscopy which was unremarkable. He reports prior bladder trauma due to removal of Mccormack w/o proper deflation of balloon. He does not want a urinary catheter placed. The hematuria has slowed down significantly. As for his cardiac cath, he is noted to have CAD but a decision regarding intervention has not been made as his case will be presented during cardiac rounds by Dr. Sanchez. He denies abd pain, suprapubic pain, cp , sob, n/v/d. 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 FmHx: non contributory History Information - Allergies/Home Medication List Allergies/Adverse Reactions: No Known Allergies Allergy (Verified 10/17/17 09:07) Home Medications: C/E/Zn/Cu/OM3/DHA/EPA/LUT/ZEAX [Preservision Areds 2 Softgel] 1 each PO BID [Last Taken 10/17/17] Cephalexin [Keflex (*)] 500 mg PO QID 11/25/17 [Last Taken Unknown] Metoprolol Succinate Xr [Toprol Xl 25 mg (*)] 25 mg PO HS 11/25/17 [Last Taken Unknown] Warfarin Sodium [Coumadin 2.5MG (*)] 2.5 mg PO TUTHSA 11/25/17 [Last Taken Unknown] Warfarin Sodium [Coumadin 5MG (*)] 5 mg PO SUMOWEFR 08/30/18 [Last Taken Unknown ] I have personally reviewed and updated: medical history, social history Past Medical History: remote A-fib, colon ca - Surgical History Additional surgical history: colectomy, ventral hernia repair - Family History Positive for: non-pertinent - Social History Smoking Status: Never smoked Additional social history: 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, lives in [place] with his Review of Systems Review of Systems: ROS: 10pt was reviewed & negative except for what was stated in HPI & below Physical Exam Physical Exam: Constitutional: no apparent distress Eyes: PERRL Ears, Nose, Mouth, Throat: moist mucous membranes Cardiovascular: regular rate and rhythym, No edema Respiratory: no respiratory distress, no rales or rhonchi, clear to auscultation Gastrointestinal: normoactive bowel sounds, soft, non-tender abdomen, no palpable masses, No guarding, No rebound, No distension Genitourinary: no bladder fullness, other (dry blood around urethra) Skin: warm Musculoskeletal: full muscle strength Neurologic: AAOx3 Psychiatric: interacting appropriately, not anxious, not encephalopathic Lymph, Heme, Immunologic: No petechiae Lab Data & Imaging Review 12/02/17 08:00 12/02/17 08:00 WBC 8.04 10^3/uL (3.80-9.50) 12/02/17 08:00 RBC 4.51 10^6/uL (4.40-6.38) 12/02/17 08:00 Hgb 14.3 g/dL (13.7-17.5) 12/02/17 08:00 Hct 42.4 % (40.0-51.0) 12/02/17 08:00 MCV 94.0 fL (81.5-99.8) 12/02/17 08:00 MCH 31.7 pg (27.9-34.1) 12/02/17 08:00 MCHC 33.7 g/dL (32.4-36.7) 12/02/17 08:00 RDW 13.1 % (11.5-15.2) 12/02/17 08:00 Plt Count 254 10^3/uL (150-400) 12/02/17 08:00 MPV 9.2 fL (8.7-11.7) 12/02/17 08:00 Neut % (Auto) 58.7 % (39.3-74.2) 12/02/17 08:00 Lymph % (Auto) 25.2 % (15.0-45.0) 12/02/17 08:00 Lane % (Auto) 10.6 % (4.5-13.0) 12/02/17 08:00 Eos % (Auto) 4.6 % (0.6-7.6) 12/02/17 08:00 Baso % (Auto) 0.5 % (0.3-1.7) 12/02/17 08:00 Nucleat RBC Rel Count 0.0 % (0.0-0.2) 12/02/17 08:00 Absolute Neuts (auto) 4.72 10^3/uL (1.70-6.50) 12/02/17 08:00 Absolute Lymphs (auto) 2.03 10^3/uL (1.00-3.00) 12/02/17 08:00 Absolute Monos (auto) 0.85 10^3/uL (0.30-0.80) H 12/02/17 08:00 Absolute Eos (auto) 0.37 10^3/uL (0.03-0.40) 12/02/17 08:00 Absolute Basos (auto) 0.04 10^3/uL (0.02-0.10) 12/02/17 08:00 Absolute Nucleated RBC 0.00 10^3/uL (0-0.01) 12/02/17 08:00 Immature Gran % 0.4 % (0.0-1.1) 12/02/17 08:00 Immature Gran # 0.03 10^3/uL (0.00-0.10) 12/02/17 08:00 PT 17.3 SEC (12.0-15.0) H 12/02/17 08:00 INR 1.40 (0.83-1.16) H 12/02/17 08:00 Sodium 141 mEq/L (135-145) 12/02/17 08:00 Potassium 4.3 mEq/L (3.3-5.0) 12/02/17 08:00 Chloride 105 mEq/L (97-110) 12/02/17 08:00 Carbon Dioxide 29 mEq/l (22-31) 12/02/17 08:00 Anion Gap 7 mEq/L (8-16) L 12/02/17 08:00 BUN 24 mg/dL (7-23) H 12/02/17 08:00 Creatinine 1.1 mg/dL (0.7-1.3) 12/02/17 08:00 Estimated GFR > 60 12/02/17 08:00 Glucose 83 mg/dL (70-100) 12/02/17 08:00 Calcium 9.2 mg/dL (8.5-10.4) 12/02/17 08:00 Magnesium 2.2 mg/dL (1.6-2.3) 12/02/17 08:00 Triglycerides 145 mg/dL (40-150) 12/02/17 08:00 Cholesterol 175 mg/dL (140-220) 12/02/17 08:00 Cholesterol Risk Factr 1.0 (0.2-1.0) 12/02/17 08:00 LDL Cholesterol, Calc 108 mg/dL (80-100) H 12/02/17 08:00 LDL Risk Factor 1.0 (0.2-1.0) 12/02/17 08:00 VLDL Cholesterol 29 mg/dL (8-25) H 12/02/17 08:00 Non-HDL Cholesterol 137 mg/dL (90-129) H 12/02/17 08:00 HDL Cholesterol 38 mg/dL (40-65) L 12/02/17 08:00 LDL/HDL Ratio 2.84 RATIO (1.00-3.64) 12/02/17 08:00 Cholesterol/HDL Ratio 4.61 RATIO (1.00-4.97) 12/02/17 08:00 Assessment & Plan Assessment: #Hematuria likely due to combination of Aspirin, Heparin, elevated INR appears much improved requests no instrumentation #pAfib #chronic AC INR is 1.4 #CAD #non sustained VT #HLD #Recent brachial artery thrombectomy Plan: the hematuria is doing better will hold off on urology consult for now recheck labs monitor overnight anticipate discharge tomorrow can likely restart coumadin tomorrow, would not bridge. post cath care per cardiology
[2017-12-02 16:21] LABS: PLATELET COUNT 246 10^3/uL (150-400)
[2017-12-02] MEDS: CEPHALEXIN 500 MG CAP PO SCH ×2 (18:30→21:16)
[2017-12-02] MEDS: METOPROLOL SUCCINATE XR 25 MG TAB PO SCH ×2 (18:31→20:57)
[2017-12-02 20:22] LABS: INR 1.34 (0.83-1.16); PROTIME(PATIENT) 16.8 SEC (12.0-15.0)
[2017-12-03 05:30] LABS: PLATELET COUNT 235 10^3/uL (150-400)
[2017-12-03 06:25] LABS: INR 1.26 (0.83-1.16)
[2017-12-03] MEDS: CEPHALEXIN 500 MG CAP PO SCH (06:41)
[2017-12-03 07:48] VITALS: BP 175/80
[2017-12-03] MEDS ORDERED: ATORVASTATIN CALCIUM 20 MG TAB PO SCH (09:00)
--- NOTE | 2017-12-03 11:04 | PDCARPN ---
Cardiology Progress Note Chief Complaint: Hematuria after cath Assessment/Plan: Assessment/Plan: Kaden is a 77 y/o M with a history of a.fib in 1999 and 2006 and recent acute brachial arterial thrombosis. He was found to have WCT by event monitor and abnormal nuc prompting a angiogram. He had 80-90% obstruction of the 1st diag and 100% to the mid LCX with R to L collaterals. Post angiogram he developed gross hematuria which improved by the follow morning. He had a similar event with Heparin in the past. He has not had any hematuria while on Coumadin alone. No intervention was done and his case will be presented at case conference. He will resume Coumadin today and repeat a PT/INR in 5 days. The patient was discussed with Dr. Sanchez. 12/03/17 10:56 Subjective: Pt denies any CP or wrist pain. He has not noted any more hematuria this morning. Reviewed/Discussed With: hospitalist Objective: Vital Signs (8 Hrs) Temp Pulse Resp BP Pulse Ox 12/03/17 07:47 36.6 C 72 12 175/80 H 97 12/03/17 04:00 36.7 C 59 L 16 172/84 H 98 Intake/Output (24 Hrs) 12/02/17 12/03/17 12/04/17 05:59 05:59 05:59 Intake Total 900 Output Total 675 Balance 225 Intake: Oral (ml) 700 IV Intake (ml) 200 Output: Urine (ml) 675 Urinal 675 Other: Weight 83 kg Number of Voids Urinal 1 Result Diagrams: 12/03/17 04:24 12/03/17 04:24 - Physical Exam Constitutional: WDWN Cardiovascular: other (right wrist is clean intact without infection) Neurologic: AAOx3 ICD10 Worksheet Patient Problems: Problems Problem Status Onset Occlusion of left brachial artery Acute
--- NOTE | 2017-12-03 14:16 | CPEKG ---
Test Reason : pre- interventional cardiology procedure Blood Pressure : / mmHG Vent. Rate : 058 BPM Atrial Rate : 057 BPM P-R Int : 210 ms QRS Dur : 089 ms QT Int : 446 ms P-R-T Axes : 048 -22 021 degrees QTc Int : 439 ms Sinus rhythm Borderline left axis deviation Abnormal R-wave progression, early transition Confirmed by Brody Lowe ([id number]) on 12/03/2017 2:16:08 PM Referred By: Confirmed By:Brody Lowe
--- NOTE | 2017-12-03 16:08 | GDS ---
PRIMARY CARE PROVIDER: Manpreet Abrams MD. DISCHARGE DIAGNOSIS: Gross hematuria. 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 He had held his Coumadin 2-3 days prior to his catheterization but was receiving aspirin and heparin. After his catheterization, he had an episode of gross hematu maribel, and then was admitted for further observation. Fortunately, his hematuria grossly resolved. I was able to view a urine sample from his urine draw this morning, which did not appear bloody at all. Mccormack catheterization as well as urologic workup with cystoscopy were discussed, but patient was no t inclined towards these interventions at this time, so we simply observed and fortunately he has don e well. His cardiac catheterization did reveal evidence of coronary artery disease, and his case hakan l be reviewed at a cardiology conference to determine further recommendations. He was chest pain edu e throughout this hospitalization. HOSPITAL COURSE BY PROBLEM: 1. Hematuria, gross. Resolved. Suspecting secondary to anti-platelet and anticoagulation agents an d likely BPH related. He does not have any history of tobacco use in the past. I discussed with him that if he has any recurrence of gross hematuria, then I would recommend a full urologic evaluation. He seemed agreeable to this recommendation, and at this time felt comfortable without additional in vestigation, considering the hematuria has resolved. 2. Elevated blood pressures. No upper extremity blood pressures were taken in light of recent throm bectomy of the left upper extremity and catheterization through his right brachial artery. Lower ext remity blood pressures were reading elevated at times with systolic into the 170s. Patient states th at at home he does not have readings to this degree, so we agree to follow this closely over the ng week, and he does have a cardiology followup in 1 week's time for reassessment. 3. Atrial fibrillation. I reviewed his case with [facility], and ultimately we decided to go ahe ad and resume anticoagulation in light of his recent brachial artery thrombosis and the fact that his hematuria has resolved. He will continue on metoprolol for rate control. 4. Coronary artery disease. This was noted by his cardiac catheterization. He will follow up with Cardiology in 1 week's time for further recommendations on potential for future intervention. Alie hutchinson was started on atorvastatin, and a prescription was sent to his pharmacy to continue. 5. Ventricular tachycardia. Patient was found to have nonsustained ventricular tachycardia on outpa tient monitoring. This is what led to his workup here in the hospital. No events noted here during this hospitalization on telemetry monitoring. 6. Hyperlipidemia. Patient will be continued on atorvastatin. 7. Brachial artery thrombosis. Patient underwent recent surgical thrombectomy. DISPOSITION: Patient appears stable for discharge home today. EXAM: VITAL SIGNS: On day of discharge, temperature 36.6, blood pressure 175/80 on lower extremity, heart rate 72, respirations 12, saturating 97% on room air. GENERAL: Patient appears comfortable. He is awake, alert, conversant, in no acute distress. HEART: Regular on exam today. No murmurs ap preciated. LUNGS: Clear on auscultation. Normal respiratory effort. ABDOMEN: Soft, nontender, no ndistended. : No Mccormack catheter in place. EXTREMITIES: No significant pitting edema of either u pper or lower extremities. NOTABLE STUDIES: Hemoglobin 13.1 at the time of discharge. INR 1.26. Creatinine 1.1. DISCHARGE MEDICATIONS: 1. Coumadin resumed at prior dosing. 2. Metoprolol succinate 25 mg nightly. 3. Atorvastatin 20 mg daily. DISCHARGE INSTRUCTIONS: Patient will be discharged home today with a plan for outpatient cardiology followup in 1 week's time. 35 minutes of time dedicated to discharge efforts. /[id number]/MODL
== END 2017-12-03 11:00 | disposition home or self-care (01) ==
LOC: FCATH 07:32 → F3E 15:49 → F2W 17:30
PROVIDERS: ADMIT Internal Medicine Interventional Cardiology; ATTEND Internal Medicine Interventional Cardiology
PROC: B2151ZZ Fluoroscopy of Left Heart using Low Osmolar Contrast (ICD-10-PCS; principal; 2017-12-02)
PROC: 4A023N7 Measurement of Cardiac Sampling and Pressure, Left Heart, Percutaneous Approach (ICD-10-PCS; principal; 2017-12-02)
PROC: B2111ZZ Fluoroscopy of Multiple Coronary Arteries using Low Osmolar Contrast (ICD-10-PCS; principal; 2017-12-02)
DX: R31.0 Gross hematuria (principal); I47.2 Ventricular tachycardia; I25.10 Atherosclerotic heart disease of native coronary artery without angina pectoris; I48.0 Paroxysmal atrial fibrillation; E78.5 Hyperlipidemia, unspecified; Z86.718 Personal history of other venous thrombosis and embolism; Z79.01 Long term (current) use of anticoagulants; Z85.038 Personal history of other malignant neoplasm of large intestine; Z90.49 Acquired absence of other specified parts of digestive tract
CPT/HCPCS: 93005; 93458; C1769; G0378; G0379; J1644; J2250; J3010; Q9967

== ENCOUNTER 2017-12-21 09:52 | Observation (INO) | payer OTHER ==
[2017-12-21] MEDS ORDERED: FAMOTIDINE 20 MG TAB PO ONE (09:56)
[2017-12-21] MEDS ORDERED: diphenhydrAMINE 25 MG CAP PO ONE (09:56)
[2017-12-21] MEDS ORDERED: DIAZEPAM 5 MG TAB PO ONE (09:56)
[2017-12-21] MEDS ORDERED: NS 1,000 ML IV ONE (09:56)
[2017-12-21] MEDS ORDERED: ASPIRIN EC 325 MG TAB PO ONE (09:56)
[2017-12-21 10:32] LABS: PLATELET COUNT 243 10^3/uL (150-400)
[2017-12-21] MEDS ORDERED: IOPAMIDOL (ISOVUE-370) 150 ML BTL IV ONE ×2 (10:35→14:07)
[2017-12-21] MEDS ORDERED: fentaNYL 100 MCG/2 ML INJ ONE (10:35)
[2017-12-21] MEDS ORDERED: LIDOCAINE 1% 300 MG/30 ML SDV ONE (10:35)
[2017-12-21] MEDS ORDERED: MIDAZOLAM 2 MG/2 ML VIAL ONE ×3 (10:35→13:31)
[2017-12-21] MEDS ORDERED: ADENOSINE 90 MG/30 ML VIAL IV ONE ×2 (10:37)
[2017-12-21] MEDS ORDERED: BIVALIRUDIN 250 MG/5 ML VIAL IV ONE ×2 (10:37→13:47)
[2017-12-21] MEDS ORDERED: NITROGLYCERIN 1,500 MCG/15 ML VIAL MISC ONE (10:38)
[2017-12-21 10:40] LABS: INR 1.18 (0.83-1.16); PROTIME(PATIENT) 15.2 SEC (12.0-15.0)
[2017-12-21] MEDS ORDERED: ATROPINE SULFATE 1 MG/10 ML SYR ONE (11:51)
--- NOTE | 2017-12-21 11:57 | PDPROPOC ---
Sedation Plan of Care Sedation Plan of Care: vital signs stable, mental status noted, patient educated of risks, benefits, alternatives, patient can tolerate sedation ASA Classification: ASA 2 Planned drugs: fentanyl, midazolam Mallampati Score: Class 2 Mallampati Reference Image: Patient passed 3-3-2 rule?: Yes
[2017-12-21] MEDS ORDERED: PRASUGREL HCL 10 MG TAB ONE (14:18)
[2017-12-21] MEDS ORDERED: TEMAZEPAM 15 MG CAP PO PRN (14:34)
[2017-12-21] MEDS ORDERED: ONDANSETRON 4 MG/2 ML VIAL IVP PRN (14:34)
[2017-12-21] MEDS ORDERED: PRASUGREL HCL 10 MG TAB PO ONE (14:34)
[2017-12-21] MEDS ORDERED: HYDROCODONE/APAP 5/325 TAB PO PRN (14:34)
[2017-12-21] MEDS ORDERED: NITROGLYCERIN 0.4 MG BTL SL PRN (14:34)
[2017-12-21] MEDS ORDERED: ATROPINE SULFATE 1 MG/10 ML SYR IVP PRN (14:34)
[2017-12-21] MEDS ORDERED: LORazepam 2 MG/ML INJ IVP PRN (14:34)
[2017-12-21] MEDS ORDERED: ACETAMINOPHEN 325 MG TAB PO PRN (14:34)
[2017-12-21] MEDS ORDERED: NS 1,000 ML IV SCH (14:45)
--- NOTE | 2017-12-21 15:28 | PDDXCAT ---
Diagnostic Cath Note - . Date: 12/21/17 Bridge Instructor: Daniel Indication: other (CAD, abnormal nuclear stresss test, and nonsustained VT.) - Procedure Access: right groin Procedure: coronary angiography, other (FFr measurements of the LAD and RCA, attemtped PCI of the circumflex, and PCI of the 1st diagonal branch of the LAD.) - Materials Left Heart Cath size: 7F Complications: None Estimated blood loss: <50ml Closure method: Angioseal Assessment: 1) Normal fractional flow reserve in the LAD and RCA. 2) Unsuccesful attempt at PCI of a chronic total occlusion in the mid-circumflex. 3 ) Successful PCI of the 1st diagoal branch of the LAD. Intervention: Please refer to the diagnostic cardiac cath report from December 02. Also referred to Dr. Aceves's recent office note. The patient is a 77 year-old male who was noted to have 2 episodes of wide complex tachycardia consistent with VT on a 30 day event monitor. A subsequent nuclear stress test was abnormal demonstrating a large territory of inferolateral ischemia. His cardiac catheterization on December 02 demonstrated moderate disease of the proximal LAD and proximal RCA. There was a high-grade stenosis in the first diagonal branch of the LAD. The circumflex demonstrated a chronic total occlusion in its midportion. There were knkhl-sj-zceg collaterals filling the distal circumflex system. He does not have any history of anginal symptoms. His case was presented at our weekly cardiac cath conference. 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 If these proved to be abnormal, it was felt that he would benefit from surgical revascularization. If his FFR measurements were normal, the plan would be to proceed with attempted PCI of the chronic total occlusion of the circumflex and PCI of the first diagonal branch. Today, he underwent repeat catheterization. A 7 [place] CLS 3.5 guide catheter was advanced to the proximal aorta. Pressure signals from the guide catheter and a pressure-wire were equalized. The catheter was then engaged in the left main. The pressure-wire was advanced to the distal portion of the LAD. Intravenous adenmosine was started per protocol. FFR was normal at 0.8. A 7 [place] Hockey-Stick guide catheter was then advanced to the RCA. pressure signals were again equalized prior to engagement.The pressure wire was advanced to the distal RCA. Intravenous adenosine administration was repeated. FFR was normal at 1.0. The CLS 3.5 guide catheter was then taken back to the left main. Attempts at crossing the SCREWHEAD POLISHER were made using a 2.0 x 12 mm Emerge balloon in combination with both an Intuition guidewire and a Tear Down Matcher-50 guidewire. The SCREWHEAD POLISHER could not be crossed. Additionally, attempts at tracking the balloon into the mid-circumflex in order to provide guidewire support proved to be extremely difficult secondary to a 180 bend in the proximal circumflex. Given difficulty in advancing a simple balloon catheter, I felt that it would have been virtually impossible to track a stent into position evenif the SCREWHEAD POLISHER could have been crossed. The Intuition guidewire was then redirected into the distal portion of the first diagonal branch of the LAD. Predilatation of a focal 80% stenosis in the proximal vessel was performed using a 2.0 x 12 mm Emerge bablloon. A 2.25 x 12 mm Rebel stent was then advanced into position and deployed at high pressure. A bare-metal stent was selected in this case because of a recent history of severe hematuria. Therefore, I wanted the option of the shortest possible course of dual antiplatelet therapy. Patient Problems: Problems Problem Status Onset Occlusion of left brachial artery Acute
[2017-12-21] MEDS ORDERED: LISINOPRIL 5 MG TAB PO ONE (15:32)
[2017-12-21] MEDS ORDERED: LISINOPRIL 10 MG TAB ONE (15:37)
--- NOTE | 2017-12-21 17:12 | CPEKG ---
Test Reason : OPEN Blood Pressure : / mmHG Vent. Rate : 059 BPM Atrial Rate : 059 BPM P-R Int : 223 ms QRS Dur : 090 ms QT Int : 465 ms P-R-T Axes : 030 -24 006 degrees QTc Int : 461 ms Sinus rhythm Prolonged AL interval LVH by voltage Confirmed by Octavio Ornelas ([id number]) on 12/21/2017 5:11:55 PM Referred By: Confirmed By:Octavio Ornelas
[2017-12-21] MEDS: WARFARIN SODIUM 5 MG TAB PO SCH (17:32)
--- NOTE | 2017-12-21 17:50 | CPEKG ---
Test Reason : OPEN Blood Pressure : / mmHG Vent. Rate : 063 BPM Atrial Rate : 063 BPM P-R Int : 192 ms QRS Dur : 095 ms QT Int : 450 ms P-R-T Axes : 042 -24 019 degrees QTc Int : 461 ms Sinus rhythm Borderline left axis deviation Confirmed by Octavio Ornelas ([id number]) on 12/21/2017 5:50:00 PM Referred By: Confirmed By:Octavio Ornelas
[2017-12-21] MEDS: PRESERVISION AREDS2 FORMULA EYE VIT 1 EACH PO SCH (20:33)
[2017-12-21] MEDS ORDERED: METOPROLOL SUCCINATE XR 25 MG TAB PO SCH (21:00)
[2017-12-22 07:52] VITALS: BP 112/66
[2017-12-22] MEDS: PRESERVISION AREDS2 FORMULA EYE VIT 1 EACH PO SCH (08:50)
[2017-12-22] MEDS ORDERED: ASPIRIN EC 325 MG TAB PO SCH (09:00)
[2017-12-22] MEDS ORDERED: PRASUGREL HCL 10 MG TAB PO SCH (09:00)
[2017-12-22] MEDS ORDERED: ATORVASTATIN CALCIUM 20 MG TAB PO SCH (09:00)
--- NOTE | 2017-12-22 09:52 | ASDISCHSUM ---
Discharge Information Plan Status:Home with No Needs Medically Cleared to Leave:12/22/2017 Discharge Date:12/22/2017 CM D/C Disposition:Home, Routine, Self-Care ADT D/C Disposition:Home, Routine, Self-Care Projected Discharge Date:12/22/2017 Transportation at D/C:Family Discharge Delay Reason: Follow-Up Date:12/22/2017 Discharge Slot: Final Diagnosis: Placement Information Patient Contact Information Contact Name:EDDIE Relationship:Life Partner Address:[address] Work Phone: City:[place] [facility] Phone: State/Zip Code:[place] [address] Email: Financial Information Financial Class:Medicare Primary Plan Desc:MEDICARE OUTPATIENT Primary Plan Number:[id number] Secondary Plan Desc:CHAYA Secondary Plan Number:[id number] Assessment Information LACE LACE Length of stay for Answers: Less than 1 day current admission Acuity / Level of Answers: No Care: Did the patient have an inpatient admission? Comorbidities - select Answers: Coronary Artery Disease all that apply Other Notes: AFib # of Emergency department Answers: 1-2 visits in the last 6 months Score: 4 Date Signed: 12/22/2017 09:51 AM Electronically Signed By:Shahla Taylor RN Intervention Information
[2017-12-22] MEDS: WARFARIN SODIUM 5 MG TAB PO SCH (11:44)
--- NOTE | 2017-12-22 15:59 | GDS ---
DISCHARGE DIAGNOSES: 1. Recent 30 day monitor showing wide-complex tachycardia suggestive of ventricular tachycardia and highly abnormal nuclear stress test with a large territory of lateral ischemia. 2. Coronary artery disease, brought in for percutaneous intervention with an FFR done to the left an terior descending and right coronary artery which were both within normal limits, unsuccessful attemp t at percutaneous intervention of a chronic total occlusion of the mid circumflex, successful percuta neous intervention of the 1st diagonal of the left anterior descending. 3. Paroxysmal atrial fibrillation and flutter. 4. Left arm brachial arterial thrombosis requiring surgical thrombectomy after cardiac catheterizati on this summer. 5. Gross hematuria following angiography after receiving heparin therapy in previous admissions. PROCEDURES: 12/21/2017, percutaneous intervention as described above. BRIEF HISTORY: Please see dictated note from Dr. Aceves dated 12/09/2017, for complete details. In [facility], the patient is a 77-year-old male who was noted to have wide-complex tachycardia consistent with VT on recent 30 day monitor. He proceeded to a nuclear stress test that was highly abnormal showing a large territory of lateral ischemia. His angiogram subsequently showed an 80-90 percent lesion in his 1st diagonal, chronic total occlusion of the left circumflex, LAD with mild to moderate disease as well as mild to moderate disease in the RCA. He had iagdd-yp-hqll collaterals present. His initia l angiography was complicated by a left arm brachial arterial thrombosis which has now healed. Follo wing his 1st angiogram, he had hematuria. He re-presented for percutaneous intervention and FFR. Th e FFR to his LAD and RCA are within normal limits. An attempt was made to intervene upon the chronic total occlusion in his left circumflex, but this was unsuccessful. He had successful percutaneous i ntervention to his LAD diagonal artery and bare metal stent was used given his history of hematuria. On day of discharge, patient denies any groin pain, chest pain, or dyspnea. PHYSICAL EXAM: VITAL SIGNS: On day of discharge, blood pressure 112/66, heart rate 81, respirations 16, O2 saturation 94% on room air. Temp of 98.2 degrees Fahrenheit. GENERAL: He is a very pleasant male, no apparent distress. HEENT: Normocephalic, atraumatic. Eyes are without scleral icterus. HEART: Regular rate and rhythm. LUNGS: Clear. Right femoral groin site without ecchymosis or brui t auscultated. CBC with WBC 7.98, hemoglobin 14.6, hematocrit 43.2, platelet count of 243. BMP with sodium 143, pot assium 4.3, chloride 106, CO2 29, BUN 19, creatinine 1, glucose of 88, total cholesterol 139, LDL of 74, HDL of 43, triglycerides 108. RESULTS PENDING: None. DIET: Per previous. ACTIVITY: Groin precautions were reviewed. DISCHARGE MEDICATIONS: Please see med reconciliation. He is to continue his warfarin, metoprolol boyce ccinate, atorvastatin, PreserVision AREDS, and his new prescriptions for prasugrel 10 mg p.o. daily. He is to continue prasugrel and warfarin together for 1 month's time. After that, he is to stop pra sugrel and be on only aspirin 81 mg p.o. daily in addition to his warfarin therapy. FOLLOWUP INSTRUCTIONS: 1. Groin precautions. 2. Follow up with Dr. Aceves in 1 week's time as scheduled. /[id number]/MODL
== END 2017-12-22 11:55 | disposition home or self-care (01) ==
LOC: FCATH 09:52 → F2W 14:34
PROVIDERS: ADMIT Internal Medicine Interventional Cardiology; ATTEND Internal Medicine Interventional Cardiology
DX: I47.1 Supraventricular tachycardia (principal); I25.10 Atherosclerotic heart disease of native coronary artery without angina pectoris; I48.0 Paroxysmal atrial fibrillation; Z86.718 Personal history of other venous thrombosis and embolism; Z85.038 Personal history of other malignant neoplasm of large intestine
CPT/HCPCS: 92928; 93005; 93571; 93572; C1725; C1760; C1769; C1876; C1887; J0153; J0583; J1644; J2250; J3010; Q9967; C9600; J0461

== ENCOUNTER 2018-01-21 10:00 | Emergency (ER) | payer OTHER ==
[2018-01-21 10:08] VITALS: BP 160/91
--- NOTE | 2018-01-21 10:27 | EDPHY ---
H & P Stated Complaint: Recent injury to left hamstring - bruising and discloration. Time Seen by Provider: 01/21/18 10:12 HPI/ROS: CHIEF COMPLAINT: Left hamstring injury HISTORY OF PRESENT ILLNESS: The patient sustained a injury to his left hamstring while hiking increased on the 17 of January. 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 The patient denies any symptoms of claudication. He is notice some bruising and ecchymosis behind his left knee. He presents to the ED for evaluation. The patient denies any acute numbness or weakness. He denies any fever. He denies any additional traumatic complaints. REVIEW OF SYSTEMS: A comprehensive 10 point review of systems is otherwise negative aside from elements mentioned in the history of present illness. Source: Patient - Personal History Current Tetanus Diphtheria and Acellular Pertussis (TDAP): Yes - Medical/Surgical History Hx Asthma: No Hx Chronic Respiratory Disease: No Hx Diabetes: No Hx Cardiac Disease: Yes Hx Renal Disease: No Hx Cirrhosis: No Hx Alcoholism: No Hx HIV/AIDS: No Hx Splenectomy or Spleen Trauma: No Other PMH: 1999, poss. 2006 afib (spont. CV). vsc occl.macular degeneration R eye. 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 2000 precancerous polyp, colectomy, incisional hernia. PRP (RASH),. L rotator cuff, B elbows fx scapular and ribs fx, fx glenoid cavity with screws - Social History Smoking Status: Never smoked - Physical Exam Exam: General Appearance: Alert, no distress Eyes: Pupils equal and round no pallor or injection ENT, Mouth: Mucous membranes moist Respiratory: There are no retractions, lungs are clear to auscultation Cardiovascular: Regular rate and rhythm Gastrointestinal: Abdomen is soft and nontender, no masses, bowel sounds normal Neurological: 5/5 strength noted bilateral lower extremities, normal sensory exam Skin: Trace amount of bruising ecchymosis noted to the left hamstring. No palpable hematoma. Extremities: No calf tenderness, normal range of motion. Palpable dorsalis pedis and posterior tibial pulses bilaterally Constitutional: Initial Vital Signs Temperature (C) 36.4 C 01/21/18 10:02 Heart Rate 82 01/21/18 10:02 Respiratory Rate 16 01/21/18 10:02 Blood Pressure 160/91 H 01/21/18 10:02 O2 Sat (%) 96 01/21/18 10:02 O2 Delivery Mode Room Air Allergies/Adverse Reactions: No Known Allergies Allergy (Verified 10/17/17 09:07) Home Medications: Medication Instructions Recorded C/E/Zn/Cu/OM3/DHA/EPA/LUT/ZEAX 1 each PO BID 10/17/17 [Preservision Areds 2 Softgel] Metoprolol Succinate Xr [Toprol Xl 25 mg PO HS 11/25/17 25 mg (*)] Atorvastatin Calcium [Lipitor 20 20 mg PO DAILY #30 tab 12/02/17 mg (*)] Warfarin Sodium [Coumadin 5MG (*)] 5 mg PO SUMOWEFR@16 12/17/17 Prasugrel HCl [Effient 10mg (*)] 10 mg PO DAILY #30 tab 12/22/17 Warfarin Sodium [Coumadin 5MG (*)] 2.5 mg PO TUTHSA@16 12/22/17 Medical Decision Making ED Course/Re-evaluation: The patient is well-appearing without evidence of arterial insufficiency, clinical evidence of a DVT or significant hematoma. He is having mild ecchymosis in the setting of his anticoagulation and anti-platelet agents secondary to a muscular strain he sustained a week ago. At this point time I do not feel that any lab tests or imaging is indicated. The patient will be discharged home with customary aftercare instructions and return precautions. Departure - Departure Disposition: Home, Routine, Self-Care Clinical Impression: Left hamstring muscle strain Condition: Good Instructions: Musculoskeletal Pain (ED) Additional Instructions: 1. Please continue your regular medications. 2. Return to the ED for any increasing leg pain, coolness, markedly increasing pain with ambulation or other concerns. 3. 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 4. Please return to the ED for any increasing calf pain, swelling, chest pain, difficulty breathing or other concerns. Referrals: Manpreet Abrams MD [Primary Care Provider] - As per Instructions
== END 2018-01-21 10:45 | disposition home or self-care (01) ==
DX: S76.312A Strain of muscle, fascia and tendon of the posterior muscle group at thigh level, left thigh, initial encounter (principal); X50.0XXA Overexertion from strenuous movement or load, initial encounter; Y93.01 Activity, walking, marching and hiking; Z79.01 Long term (current) use of anticoagulants; Z79.02 Long term (current) use of antithrombotics/antiplatelets; Z86.718 Personal history of other venous thrombosis and embolism

== ENCOUNTER 2018-09-20 20:49 | Emergency (ER) | payer OTHER | END 2018-09-20 23:05 | disposition home or self-care (01) ==